=== PATIENT | male | born 1935 | race Caucasian/White ===

== ENCOUNTER 2019-07-04 09:09 | Emergency (ER) | payer MEDICARE ==
--- NOTE | 2019-07-04 09:56 | RAD ---
Exam: Chest one view HISTORY:Chest pain Comparison: 10/27/2015 FINDINGS: Cardiac silhouette:Upper normal cardiac silhouette. Stable sternotomy wires. Aorta: Atherosclerosis of the aortic knob Pulmonary vessels: Normal Costophrenic angles: Clear LUNGS: No masses or consolidation. Diffuse reticulonodular opacities. Stable calcified granulomas. Pneumothorax: None Osseous abnormalities: None IMPRESSION: No acute cardiopulmonary process. Atherosclerosis of the aortic knob.
--- NOTE | 2019-07-04 10:17 | CT ---
Exam: CT cervical spine without contrast HISTORY: Trauma. Pain. COMPARISON: None FINDINGS: No craniocervical dissociation. Appropriate alignment of the lateral masses of C1 and C2. Intact odon toid process Appropriate alignment of the facets. Straightening of normal cervical lordosis may be due to patient position, muscle spasm or cervical co llar. Current study is not tailored to assess for ligamentous injury. Soft tissue neck structures: No mass, lymphadenopathy or hematoma. No prevertebral soft tissue swelli ng. Upper mediastinum and lung apices: Unremarkable Central spinal canal: Neural foramina and central spinal canal are patent. Evaluation is limited by elias sales. There is sclerosis at the C6-C7 disc space. Endplate changes are presumed due to long-standing degenerative change. Vertebral bodies: There does appear to be loss of vertebral body height along the superior aspect of C7. However, sclerosis suggesting a chronic process. Acute fracture is not appreciated. There is mild bone demineralization. Sellar/suprasellar mass is noted. Incomplete evaluation. Refer to prior imaging for further detail IMPRESSION: 1. Remote injury/degenerative change involving the superior endplate of C7. 2. No acute fracture. 3. Mild bony demineralization.
--- NOTE | 2019-07-04 10:18 | CT ---
Head CT without contrast 07/04/2019: COMPARISON: 10/27/2015 HISTORY: Fall, trauma TECHNIQUE: Axial CT imaging at 5 mm intervals from vertex through skull base without contrast FINDINGS: Focal area of scalp swelling and subcutaneous hematoma noted superior and lateral to the le ft orbit. The visualized paranasal sinuses/mastoid air cells appear well aerated. No displaced calvarial fracture is noted. There is a mass in the sellar/suprasellar region measuring 3.0 x 2.4 cm, grossly unchanged when godwin red to the prior exam. This mass appears stable when compared to additional prior imaging, including brain MRI performed 08/31/2015. There is new hypodensity with encephalomalacia involving the inferior lateral left frontal lobe exten ding to the axial level of the frontal horn of left lateral ventricle suggesting a new but chronic infarction. No intracranial hemorrhage seen. IMPRESSION: Numerous chronic/incidental findings. Focal area of scalp swelling/subcutaneous hematoma in the left supraorbital region with no associated intracranial hemorrhage or fracture.
[2019-07-04 10:20] LABS: #Eosinphils 0.2 thou/uL (0.0-0.7); #Lymphocytes 2.1 thou/uL (1.20-3.40); #Monocytes 1.1 thou/uL (0.11-0.59); %Basophils 0.1 % (0.0-1.0); %Eosinophils 1.7 % (0.0-10.0); %Lymphocytes 14.3 % (21.0-51.0); %Monocytes 7.5 % (0.0-10.0); %Neutrophils 76.5 % (42.0-75.0); Hemoglobin 13.3 g/dL (14.0-18.0); Mean Corpuscular HGB CONC 34.2 g/dL (32.0-36.0); Mean Corpuscular Hemoglobin 31.7 pg (27.0-31.0); Mean Corpuscular Volume 92.6 fL (78.0-98.0); Mean Platelet Volume 9.4 fL (7.4-10.4); Platelet Count 254 thou/uL (130-400); RBC Distribution Width 11.9 % (11.5-14.5); White Blood Cell (WBC) Count 14.4 thou/uL (4.8-10.8)
[2019-07-04 10:42] LABS: ALT (SGPT) Less than 7 U/L (8-55); AST (SGOT) 14 U/L (5-34); Albumin 3.7 g/dL (3.4-4.8); Alkaline Phosphatase 114 U/L (40-110); Anion Gap 14 mmol/L (10-20); BUN (Urea Nitrogen) 11 mg/dL (8.4-25.7); Calc. Creatinine Clearance 0 mL/min (70-130); Calcium 8.7 mg/dL (7.8-10.44); Carbon Dioxide 29 mmol/L (23-31); Chloride 100 mmol/L (98-107); Estimated GFR-MDRD 50; Globulin 2.6 g/dL (2.4-3.5); Glucose 200 mg/dL (83-110); Lipase 9 U/L (8-78); Potassium 4.7 mmol/L (3.5-5.1); Protein, Total 6.3 g/dL (5.8-8.1); Sodium 138 mmol/L (136-145)
[2019-07-04 10:57] LABS: Bilirubin Negative (Negative); Blood, Urine Negative (Negative); Clarity Clear (Clear); Glucose, Urine (Dipstick) Normal (Negative); Leukocyte Negative Leu/uL (Negative); Nitrite Negative (Negative); Protein, Urine (Dipstick) Negative (Neg-Trace); Urobilinogen Normal mg/dL (Less than 2)
[2019-07-04] MEDS ORDERED: Acetaminophen 325 MG TAB ONE (15:01)
== END 2019-07-04 15:18 | disposition home or self-care (01) ==
LOC: ERS 09:09
DX: S16.1XXA Strain of muscle, fascia and tendon at neck level, initial encounter (principal); S00.83XA Contusion of other part of head, initial encounter; G30.9 Alzheimer's disease, unspecified; I25.10 Atherosclerotic heart disease of native coronary artery without angina pectoris; I10 Essential (primary) hypertension; E11.9 Type 2 diabetes mellitus without complications; Z86.73 Personal history of transient ischemic attack (TIA), and cerebral infarction without residual deficits; Z79.899 Other long term (current) drug therapy; W18.30XA Fall on same level, unspecified, initial encounter
CPT/HCPCS: 36415; 70450; 71045; 72125; 80053; 81003; 83690; 83880; 84484; 85025; 93005; 96360; 96361

== ENCOUNTER 2019-07-09 09:12 | Inpatient (IN) | payer MEDICARE ==
[2019-07-09 09:43] LABS: #Eosinphils 0.1 thou/uL (0.0-0.7); #Lymphocytes 1.8 thou/uL (1.20-3.40); #Monocytes 0.9 thou/uL (0.11-0.59); #Neutrophils 8.8 thou/uL (1.40-6.50); %Basophils 0.2 % (0.0-1.0); %Eosinophils 0.7 % (0.0-10.0); %Lymphocytes 15.5 % (21.0-51.0); %Monocytes 7.7 % (0.0-10.0); %Neutrophils 75.9 % (42.0-75.0); Hemoglobin 13.6 g/dL (14.0-18.0); Mean Corpuscular HGB CONC 33.2 g/dL (32.0-36.0); Mean Corpuscular Hemoglobin 30.3 pg (27.0-31.0); Mean Corpuscular Volume 91.4 fL (78.0-98.0); Mean Platelet Volume 8.8 fL (7.4-10.4); Platelet Count 301 thou/uL (130-400); Red Blood Cell (RBC) Count 4.48 mill/uL (4.70-6.10); White Blood Cell (WBC) Count 11.6 thou/uL (4.8-10.8)
--- NOTE | 2019-07-09 10:01 | CT ---
CT BRAIN WITHOUT CONTRAST: Date: 07/09/19 HISTORY: Syncope. FINDINGS: Comparison made with exam of 07/04/19. 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 Ventricular s ize is stable and the basilar cisterns are patent. No evidence of acute infarct, hemorrhage, midline shift, or abnormal extra-axial fluid collections are seen. The bony calvarium is intact. The soft tis mare hematoma superolateral to the left orbit is again seen. The sellar/suprasellar mass is unchanged since MRI of 08/31/15. IMPRESSION: Stable exam. No acute intracranial process. POS: [facility]
[2019-07-09 10:09] LABS: ALT (SGPT) Less than 7 U/L (8-55); AST (SGOT) 12 U/L (5-34); Albumin 3.9 g/dL (3.4-4.8); Alkaline Phosphatase 110 U/L (40-110); Anion Gap 14 mmol/L (10-20); BUN (Urea Nitrogen) 19 mg/dL (8.4-25.7); Bilirubin, Total 1.4 mg/dL (0.2-1.2); Calc. Creatinine Clearance 0 mL/min (70-130); Calcium 8.9 mg/dL (7.8-10.44); Carbon Dioxide 30 mmol/L (23-31); Chloride 97 mmol/L (98-107); Estimated GFR-MDRD 44; Globulin 2.6 g/dL (2.4-3.5); Glucose 172 mg/dL (83-110); Potassium 3.3 mmol/L (3.5-5.1); Protein, Total 6.5 g/dL (5.8-8.1); Sodium 138 mmol/L (136-145)
[2019-07-09 13:08] VITALS: BMI 23.8
[2019-07-09 13:15] LABS: Troponin I Less than 0.010 ng/mL (< 0.028)
[2019-07-09] MEDS ORDERED: Bisacodyl 5 MG TAB PO PRN (19:45)
--- NOTE | 2019-07-09 20:21 | PDOC.HHP ---
Hospitalist HPI - History of Present Illness syncope History of Present Illness: This is an 84 year old male with dementia, CAD, who presented to ER from [facility] for possible syncope. Today he fell after feeling lightheaded. Staff caught him before he hit the floor. He was laid down by staff and started vomiting and having some diarrhea and incontinence. He had a recent fall a few days ago and went to the ER and was discharged the same day. During that time he hit his head and had some eye bruising. In the EMS, he had HR in the 50's. Patient denied head pain but had dizziness upon sitting up in the ER. Patient has dementia and is unreliable historian. He does not know why he is here. He knows he is on the hospital and insists he is going home tomorrow, does not know the year. Patient denies chest pain, abdominal pain, numbness in extremities, nausea, vomiting, constipation, diarrhea ED Course: EKG showed new LBBB, troponin was normal. Patient also found to have a creatinine of 1.53 and was given 1L normal saline. Ct head was normal. He Hospitalist ROS - Review of Systems Eyes: denies: pain, vision change, conjunctivae inflammation, other ENT: denies: ear discharge, nose pain Respiratory: denies: dry, shortness of breath, pleuritic pain Cardiovascular: denies: chest pain, palpitations Gastrointestinal: denies: nausea, vomiting, abdominal pain, diarrhea Genitourinary: denies: dysuria, frequency Neurological: denies: weakness, numbness, incoordination Hospitalist History - Past Medical History Cardiac: reports: AFIB, CAD, HTN Renal/: reports: Benign prostatic enlarg. Endocrine: reports: Diabetes Other Medical History: Dementia - Past Surgical History Past Surgical History: reports: CABG - Family History Family History: reports: diabetes mellitus - Social History Smoking Status: Never smoker Alcohol: reports: None Living Situation: [facility] Activity level: independent ambulation - Exam General Appearance: NAD, awake alert General - other findings: Patient with mild swelling on left scalp . Eye: PERRL, anicteric sclera Eye - other findings: Left eyelid appears bruised ENT: normocephalic atraumatic, no oropharyngeal lesions, dry oral mucosa Neck: supple, symmetric, no JVD Heart: RRR, no murmur, no gallops, no rubs Respiratory: CTAB, no wheezes, no rales, no ronchi Gastrointestinal: soft, non-tender, non-distended, normal bowel sounds Extremities: no cyanosis, no clubbing, no edema Skin: normal turgor, no lesions Neurological: cranial nerve grossly intact, normal sensation to touch, no focal deficits, facial droop Neurological - other findings: oriented to place Musculoskeletal: normal tone, normal strength, no muscle wasting Psychiatric: oriented to place Psychiatric - other findings: confused Hospitalist Results - Labs Result Diagrams: 07/09/19 09:34 07/09/19 09:34 Lab results: WBC 11.6 thou/uL (4.8-10.8) H 07/09/19 09:34 Hgb 13.6 g/dL (14.0-18.0) L 07/09/19 09:34 Hct 40.9 % (42.0-52.0) L 07/09/19 09:34 MCV 91.4 fL (78.0-98.0) 07/09/19 09:34 Plt Count 301 thou/uL (130-400) 07/09/19 09:34 Neutrophils % 75.9 % (42.0-75.0) H 07/09/19 09:34 Sodium 138 mmol/L (136-145) 07/09/19 09:34 Potassium 3.3 mmol/L (3.5-5.1) L 07/09/19 09:34 Chloride 97 mmol/L (98-107) L 07/09/19 09:34 Carbon Dioxide 30 mmol/L (23-31) 07/09/19 09:34 BUN 19 mg/dL (8.4-25.7) 07/09/19 09:34 Creatinine 1.53 mg/dL (0.7-1.3) H 07/09/19 09:34 Glucose 172 mg/dL (83-110) H 07/09/19 09:34 Calcium 8.9 mg/dL (7.8-10.44) 07/09/19 09:34 Total Bilirubin 1.4 mg/dL (0.2-1.2) H 07/09/19 09:34 AST 12 U/L (5-34) 07/09/19 09:34 ALT Less than 7 U/L (8-55) L 07/09/19 09:34 Alkaline Phosphatase 110 U/L (40-110) 07/09/19 09:34 Troponin I 0.020 ng/mL (< 0.028) 07/09/19 15:41 Serum Total Protein 6.5 g/dL (5.8-8.1) 07/09/19 09:34 Albumin 3.9 g/dL (3.4-4.8) 07/09/19 09:34 Hospitalist H&P A/P - Plan Plan: CT brain: no acute disease This is an 84 year old male who presented to the ER with syncope. Has had recurrent falls. Found to have new LBBB, brought in for evaluation Syncope - possibly orthostatic versus vasovagal - check orthostatics, monitor on telemetry, troponin normal. Hold lisinopril and lasix for now - EKG shows LBBB, this is not new. Will check ECHO, monitor heart rate on metoprolol MONIE - creatinine was 1.53. Will continue IV fluids Leukocytosis - WBC elevated, check chest Xray and UA Hypokalemia - potassium 3.3, replace with 40 meq of potassium LBBB -noted on EKG in 2015. Obtain ECHO. No chest pain currently Recurrent Falls - PTOT. Elevated bilirubin - bilirubin 1.4, will recheck tomorrow. LFTS normal Hypertension - resume metoprolol, hold imdur and finasteride Diabetes type II - diabetic diet, insulin sliding scale GERD - protonix Parkinsons - continue carbidopa/levodopa tid Hyperlipidemia - 40 mg po qhs Code status: DNR DVT prophylaxis: hold off for now, PTOT
[2019-07-09] MEDS ORDERED: Nystatin Cream 30 GM TUBE TOP PRN (20:23)
[2019-07-09] MEDS ORDERED: Dextrose 50% Abboject 50 ML SYRINGE SLOW IVP PRN (20:34)
[2019-07-09] MEDS ORDERED: HumaLOG 300 UNITS/3 ML VIAL SC PRN (20:34)
[2019-07-09] MEDS ORDERED: Dextrose 5% in Water 1,000 ML IV PRN (20:34)
[2019-07-09] MEDS ORDERED: Potassium Chloride 20 MEQ TAB PO SCH (20:45)
[2019-07-09] MEDS: Metoprolol Tartrate 50 MG TAB PO SCH (21:31)
[2019-07-09] MEDS: Sodium Chloride 0.9% 1,000 ML IV SCH (21:31)
[2019-07-09] MEDS: Finasteride 5 MG TAB PO SCH (21:31)
[2019-07-09] MEDS: Apixaban 5 MG TAB PO SCH (21:31)
[2019-07-09] MEDS: Atorvastatin Calcium 40 MG TAB PO SCH (21:31)
[2019-07-09] MEDS: Donepezil HCl 10 MG TAB PO SCH (21:56)
[2019-07-09] MEDS: Carbidopa/Levodopa 25-100 mg Tablet PO SCH (21:57)
[2019-07-10 06:33] LABS: #Eosinphils 0.1 thou/uL (0.0-0.7); #Lymphocytes 2.3 thou/uL (1.20-3.40); #Neutrophils 8.4 thou/uL (1.40-6.50); %Basophils 0.1 % (0.0-1.0); %Eosinophils 1.2 % (0.0-10.0); %Lymphocytes 19.6 % (21.0-51.0); %Monocytes 8.7 % (0.0-10.0); %Neutrophils 70.3 % (42.0-75.0); Mean Corpuscular HGB CONC 33.7 g/dL (32.0-36.0); Mean Corpuscular Hemoglobin 30.9 pg (27.0-31.0); Mean Corpuscular Volume 91.7 fL (78.0-98.0); Mean Platelet Volume 9.2 fL (7.4-10.4); Platelet Count 261 thou/uL (130-400); RBC Distribution Width 11.9 % (11.5-14.5); Red Blood Cell (RBC) Count 4.22 mill/uL (4.70-6.10); White Blood Cell (WBC) Count 11.9 thou/uL (4.8-10.8)
[2019-07-10 06:49] LABS: Anion Gap 11 mmol/L (10-20); BUN (Urea Nitrogen) 18 mg/dL (8.4-25.7); Calc. Creatinine Clearance 55 mL/min (70-130); Calcium 8.5 mg/dL (7.8-10.44); Carbon Dioxide 31 mmol/L (23-31); Chloride 100 mmol/L (98-107); Estimated GFR-MDRD 60; Glucose 113 mg/dL (83-110); Potassium 3.3 mmol/L (3.5-5.1); Sodium 139 mmol/L (136-145)
[2019-07-10 06:52] LABS: ALT (SGPT) Less than 7 U/L (8-55); AST (SGOT) 12 U/L (5-34); Albumin 3.6 g/dL (3.4-4.8); Alkaline Phosphatase 99 U/L (40-110); Bilirubin, Direct 0.5 mg/dL (0.1-0.3); Bilirubin, Total 1.3 mg/dL (0.2-1.2)
[2019-07-10 08:48] LABS: Bacteria/HPF None Seen HPF (None Seen); Bilirubin Negative (Negative); Blood, Urine Negative (Negative); Clarity Clear (Clear); Glucose, Urine (Dipstick) Normal (Negative); Leukocyte Negative Leu/uL (Negative); Nitrite Negative (Negative); Protein, Urine (Dipstick) Negative (Neg-Trace); RBC/HPF 0-3 HPF (0-3); Squamous Epithelial None Seen HPF (0-3); Urobilinogen 3 mg/dL (Less than 2); WBC/HPF 0-3 HPF (0-3)
[2019-07-10] MEDS: Carbidopa/Levodopa 25-100 mg Tablet PO SCH ×3 (11:04→20:20)
[2019-07-10] MEDS: Apixaban 5 MG TAB PO SCH ×2 (11:04→20:20)
[2019-07-10] MEDS: Metoprolol Tartrate 50 MG TAB PO SCH ×2 (11:05→20:19)
[2019-07-10] MEDS: Sodium Chloride 0.9% 1,000 ML IV SCH (16:19)
[2019-07-10] MEDS ORDERED: Potassium Chloride 20 MEQ TAB PO SCH (16:30)
[2019-07-10] MEDS: Finasteride 5 MG TAB PO SCH (20:19)
[2019-07-10] MEDS: Donepezil HCl 10 MG TAB PO SCH (20:19)
[2019-07-10] MEDS: Atorvastatin Calcium 40 MG TAB PO SCH (20:20)
--- NOTE | 2019-07-10 20:44 | PDOC.HOSPP ---
- Subjective Encounter Date: 07/10/19 Encounter Time: 20:42 Subjective: Patient is doing well. He denies any complaints. He ambulated with PT and was found to be independent with walker. Denies chest pain, numbness in extremities - Objective Vital Signs & Weight: Vital Signs (12 hours) Temp Pulse Pulse Pulse Resp BP BP 07/10/19 15:52 97.8 F 65 14 07/10/19 13:50 65 67 157/72 H 170/79 H 07/10/19 11:30 97.8 F 68 15 07/10/19 10:26 88 18 07/10/19 10:25 97.5 F L 88 20 BP Pulse Ox 07/10/19 15:52 158/74 H 96 07/10/19 13:50 07/10/19 11:30 170/74 H 98 07/10/19 10:26 164/88 H 07/10/19 10:25 166/88 H 95 Weight Admit Weight 180 lb 3 oz Weight 180 lb 3 oz I&O: 07/09/19 07/10/19 07/11/19 06:59 06:59 06:59 Intake Total 650 1580 Output Total 750 1320 Balance -100 260 Result Diagrams: 07/10/19 05:50 07/10/19 05:50 Additional Labs: Accuchecks 07/10/19 07/10/19 20:05 05:08 POC Glucose 125 H 109 Hospitalist ROS - Review of Systems Constitutional: denies: fever, chills - Medication Medications: Active Medications Generic Name Dose Route Start Last Admin Trade Name Freq PRN Reason Stop Dose Admin Apixaban 5 mg 07/09/19 21:00 07/10/19 20:20 Eliquis PO 5 mg BID CONOR Administration Atorvastatin Calcium 40 mg 07/09/19 21:00 07/10/19 20:20 Lipitor PO 40 mg HS CONOR Administration Carbidopa/Levodopa 1 tab 07/09/19 21:00 07/10/19 20:20 Sinemet 25-100 PO 1 tab TID CONOR Administration Donepezil HCl 10 mg 07/09/19 21:00 07/10/19 20:19 Aricept PO 10 mg HS CONOR Administration Finasteride 5 mg 07/09/19 21:00 07/10/19 20:19 Proscar PO 5 mg HS CONOR Administration Sodium Chloride 1,000 mls @ 75 mls/hr 07/09/19 20:30 07/10/19 16:19 Normal Saline 0.9% IV 1,000 mls .[id number] CONOR Administration Metoprolol Tartrate 50 mg 07/09/19 21:00 07/10/19 20:19 Lopressor PO 50 mg BID CONOR Administration Pantoprazole Sodium 40 mg 07/10/19 09:00 07/10/19 11:05 Protonix PO 40 mg DAILY CONOR Administration - Exam General Appearance: NAD, awake alert Eye: PERRL, anicteric sclera Eye - other findings: Bruising on left eye ENT: normocephalic atraumatic, no oropharyngeal lesions Neck: supple, symmetric, no JVD, no thyromegaly Heart: RRR, no murmur, no gallops, no rubs Respiratory: CTAB, no wheezes, no rales Gastrointestinal: soft, non-tender, non-distended Extremities: no cyanosis, no clubbing, no edema Skin: normal turgor, no lesions, no rashes Neurological: cranial nerve grossly intact, normal sensation to touch, no focal deficits, no new deficit Musculoskeletal: normal tone, normal strength, no muscle wasting Psychiatric: normal affect, normal behavior, A&O x 3 Hosp A/P - Plan This is an 84 year old male who presented to the ER with syncope. Has had recurrent falls. Found to have new LBBB, brought in for evaluation Near Syncope - possibly orthostatic versus vasovagal LBBB Recurrent Falls - check orthostatics - no events on tele so far - troponin negative x 3. ECHO done and pending. Continue monitor on telemetry, troponin normal. Hold lisinopril and lasix for now - EKG shows LBBB, this is not new. Will check ECHO, monitor heart rate on metoprolol - PT saw patient and thought independent with walker and okay for detention Hypokalemia - potassium 3.3, replace with 40 meq of potassium. Recheck BMP in am Hypertension - BP increasing to 170's, will resume imdur - continue metoprolol - hold lisinopril and lasix due to MONIE on admission MONIE - resolved - d/c fluids Leukocytosis - WBC elevated, UA negative. Check chest x ray Hypokalemia - potassium 3.3, replace with 40 meq of potassium Elevated bilirubin - bilirubin 1.3, stable - no LFt elevation. Possibly Gilbert's? No abdominal pain or jaundice Diabetes type II - diabetic diet, insulin sliding scale GERD - protonix Parkinsons - continue carbidopa/levodopa tid Hyperlipidemia - 40 mg po qhs DVT prophylaxis: ambulation Code status: DNR Disposition: change to inpatient. Possibly d/c tomorrow if BP stable with resumption of meds and no falls
[2019-07-10] MEDS ORDERED: Amlodipine 5 MG TAB PO SCH (20:49)
[2019-07-10] MEDS: Isosorbide Mononitrate 20 MG TAB PO SCH (21:25)
[2019-07-11 04:50] LABS: Hemoglobin 12.8 g/dL (14.0-18.0); Mean Corpuscular Hemoglobin 32.2 pg (27.0-31.0); Mean Corpuscular Volume 91.7 fL (78.0-98.0); Mean Platelet Volume 8.9 fL (7.4-10.4); Platelet Count 252 thou/uL (130-400); RBC Distribution Width 11.9 % (11.5-14.5); Red Blood Cell (RBC) Count 3.98 mill/uL (4.70-6.10)
[2019-07-11 04:56] LABS: Anion Gap 12 mmol/L (10-20); BUN (Urea Nitrogen) 17 mg/dL (8.4-25.7); Calc. Creatinine Clearance 66 mL/min (70-130); Calcium 8.6 mg/dL (7.8-10.44); Carbon Dioxide 29 mmol/L (23-31); Chloride 104 mmol/L (98-107); Estimated GFR-MDRD 73; Glucose 121 mg/dL (83-110); Potassium 3.5 mmol/L (3.5-5.1); Sodium 141 mmol/L (136-145)
[2019-07-11] MEDS: Apixaban 5 MG TAB PO SCH ×2 (08:37→19:34)
[2019-07-11] MEDS: Isosorbide Mononitrate 20 MG TAB PO SCH ×2 (08:37→19:33)
[2019-07-11] MEDS: Carbidopa/Levodopa 25-100 mg Tablet PO SCH ×3 (08:37→19:34)
[2019-07-11] MEDS: Metoprolol Tartrate 50 MG TAB PO SCH ×2 (08:37→19:33)
--- NOTE | 2019-07-11 09:46 | RAD ---
FRONTAL VIEW CHEST: COMPARISON: 07/04/2019. INDICATION: Leukocytosis. FINDINGS: Postoperative findings of the chest are similar in appearance. Redemonstration of granulom atous calcification. Mild linear density at the left lung base favors atelectasis. Otherwise no lobar consolidation, or significant effusion. Chest is otherwise similar. IMPRESSION: Mild left basilar atelectasis. Transcribed Date/Time: 07/11/2019 9:59 AM
[2019-07-11] MEDS ORDERED: Lisinopril 5 MG TAB PO SCH (13:30)
--- NOTE | 2019-07-11 18:09 | PDOC.HOSPP ---
- Subjective Encounter Date: 07/11/19 Encounter Time: 18:08 Subjective: Patient has no complaints. He states he walked around the hallway without difficulty. He has no headache or eye pain. Lisinopril restarted at low dose 2.5 mg. Orthostatics positive this morning but repeat orthostatics negative. - Objective Vital Signs & Weight: Vital Signs (12 hours) Temp Pulse Pulse Pulse Resp BP BP 07/11/19 15:10 98.6 F 64 18 07/11/19 13:52 90 155/85 H 07/11/19 11:52 97.2 F L 90 18 07/11/19 11:24 113 H 87 155/85 H 07/11/19 09:02 78 82 137/74 07/11/19 07:58 98.3 F 80 18 07/11/19 07:40 BP BP BP BP BP Pulse Ox 07/11/19 15:10 145/88 H 148/86 H 138/76 97 07/11/19 13:52 07/11/19 11:52 155/85 H 97 07/11/19 11:24 123/73 07/11/19 09:02 147/78 H 07/11/19 07:58 133/82 98 07/11/19 07:40 97 Weight Admit Weight 180 lb Weight 180 lb 3 oz I&O: 07/10/19 07/11/19 07/12/19 06:59 06:59 06:59 Intake Total 650 1680 Output Total 750 1720 Balance -100 -40 Result Diagrams: 07/11/19 04:21 07/11/19 04:21 Additional Labs: Accuchecks 07/11/19 07/11/19 07/10/19 16:51 10:36 20:05 POC Glucose 165 H 135 H 125 H Hospitalist ROS - Review of Systems Constitutional: denies: fever, chills - Medication Medications: Active Medications Generic Name Dose Route Start Last Admin Trade Name Freq PRN Reason Stop Dose Admin Apixaban 5 mg 07/09/19 21:00 07/11/19 08:37 Eliquis PO 5 mg BID CONOR Administration Atorvastatin Calcium 40 mg 07/09/19 21:00 07/10/19 20:20 Lipitor PO 40 mg HS CONOR Administration Carbidopa/Levodopa 1 tab 07/09/19 21:00 07/11/19 15:10 Sinemet 25-100 PO 1 tab TID CONOR Administration Donepezil HCl 10 mg 07/09/19 21:00 07/10/19 20:19 Aricept PO 10 mg HS CONOR Administration Finasteride 5 mg 07/09/19 21:00 07/10/19 20:19 Proscar PO 5 mg HS CONOR Administration Insulin Human Lispro 0 units 07/09/19 20:34 07/11/19 17:23 Humalog SC 2 unit .MILD SLIDING SCALE PRN Administration Mild Correctional Scale Isosorbide Mononitrate 20 mg 07/10/19 21:00 07/11/19 08:37 Ismo PO 20 mg BID CONOR Administration Metoprolol Tartrate 50 mg 07/09/19 21:00 07/11/19 08:37 Lopressor PO 50 mg BID CONOR Administration Pantoprazole Sodium 40 mg 07/10/19 09:00 07/11/19 08:37 Protonix PO 40 mg DAILY CONOR Administration - Exam General Appearance: NAD, awake alert General - other findings: head scalp Eye: PERRL, anicteric sclera ENT: normocephalic atraumatic, no oropharyngeal lesions, dry oral mucosa Neck: supple, symmetric, no JVD, no thyromegaly Heart: RRR, no murmur, no gallops, no rubs Respiratory: CTAB, no wheezes, no rales, no ronchi, no tachypnea Gastrointestinal: soft, non-tender, non-distended, no palpable masses Extremities: no cyanosis, no clubbing, no edema Skin: normal turgor, no lesions, no rashes Neurological: cranial nerve grossly intact, normal sensation to touch, no focal deficits, no new deficit Musculoskeletal: normal tone, normal strength, no muscle wasting Psychiatric: normal affect, normal behavior, A&O x 3, oriented to person Hosp A/P - Plan ECHO: EF 40-45%, mild MR, mild TR Chest X ray: mild left basilar atelectasis This is an 84 year old male who presented to the ER with syncope. Has had recurrent falls. Found to have new LBBB, brought in for evaluation Orthostatic syncope LBBB Recurrent Falls Hypertension - orthostatics positive. On finasteride, imdur, metoprolol. Lisinopril resumed at low dose 5 mg. Repeat orthostatics negative. Patient on 6 antihypertensives as outpatient. IF BP remains stable, will likely d/c on current regimen - no events on tele so far - troponin negative x 3. ECHO shows EF 40-45%. Hypokalemia - resolved MONIE - resolved - d/c fluids Leukocytosis - WBC elevated, UA negative. Chest Xray shows atelectasis Elevated bilirubin - bilirubin 1.3, stable - no LFt elevation. Possibly Gilbert's? No abdominal pain or jaundice Diabetes type II - diabetic diet, insulin sliding scale GERD - protonix Parkinsons - continue carbidopa/levodopa tid Hyperlipidemia - 40 mg po qhs DVT prophylaxis: ambulation Code status: DNR Disposition: monitor BP overnight with addition of lisinopril. Likely d/c tomorrow if stable
[2019-07-11] MEDS: Donepezil HCl 10 MG TAB PO SCH (19:34)
[2019-07-11] MEDS: Finasteride 5 MG TAB PO SCH (19:34)
[2019-07-11] MEDS: Atorvastatin Calcium 40 MG TAB PO SCH (19:34)
[2019-07-12] MEDS ORDERED: Lisinopril 5 MG TAB PO SCH ×2 (09:00→13:11)
[2019-07-12] MEDS: Carbidopa/Levodopa 25-100 mg Tablet PO SCH ×2 (10:22→14:48)
[2019-07-12] MEDS: Isosorbide Mononitrate 20 MG TAB PO SCH (10:22)
[2019-07-12] MEDS: Apixaban 5 MG TAB PO SCH (10:22)
[2019-07-12] MEDS: Metoprolol Tartrate 50 MG TAB PO SCH (10:23)
[2019-07-12 11:57] VITALS: TEMP 97.7
[2019-07-12 13:28] VITALS: BP 177/92
--- NOTE | 2019-07-13 04:04 | PQF ---
JOSE PARKINSON, [facility] [id number] CLINICAL DOCUMENTATION CLARIFICATION FORM: POST DISCHARGE Addendum to original discharge summary date: ____ Late entry note date: __ DATE: 07/13/19 ATTN: Dr. Phoenix, [facility] Please exercise your independent, professional judgment in responding to the clarification form. Clinical indicators are provided on the bottom of this form for your review Can you please further specify the etiology of syncope? Please check appropriate box(s): Syncope Due to: [ X ] Orthostatic hypotension [ ] LBBB [ ] MONIE [ ] Vasovagal syncope [ ] Drug Induced hypotension [ ] Other diagnosis please specify [ ] Unable to determine In addition, please specify: Present on Admission (POA): [ ] Yes [ ] No [ ] Unable to determine For continuity of documentation, please document condition throughout progress notes and discharge summary. Thank You. CLINICAL INDICATORS - SIGNS / SYMPTOMS / LABS H and P pg.1- In EMS he had HR in the 50's H and P pg.1- EKG showed new LBBB, troponin was normal H and P pg.1- Patient also found to have Creatinine of 1.53 and was given normal saline H and P pg.3- Syncope possibly orthostatic vs vasovagal Hospitalist PN 07/11 pg.5-Orthostatic positive. Patient on 6 antihypertensives as outpatient RISK FACTORS Dementia- H and P pg.1 Hypertension- H and P pg.4 Diabetes type 2- H and P pg.4 Parkinson- H and P pg.4 Hyperlipidemia- H and P pg.4 84 years old male - ED Notes 07/10 AFib - ED Notes 07/10 LBBB - ED Notes 07/10 MONIE - PN 07/10 Hypokalemia - PN 07/10 TREATMENTS IV Fluids- MAR 07/10 BP Monitoring- Vital signs CT of Brain - Collected 10/27 EKG - HP 07/10 Electrolyte replacement - HP 07/10 Hold for Imdur and Finasteride - HP 07/10 (This form is maintained as a part of the permanent medical record) 2014 [employer]. All Rights Reserved Justyn [email or web address] [not provided] MTDD
--- NOTE | 2019-07-13 12:34 | DIS ---
DATE OF ADMISSION: 07/10/2019 DATE OF DISCHARGE: 07/12/2019 DISCHARGE DIAGNOSES: Recurrent fall secondary to orthostatic hypotension, orthostatic syncope, left bundle branch block, hypokalemia, acute kidney injury, leukocytosis, and elevated bilirubin. SECONDARY DISCHARGE DIAGNOSES: Diabetes type 2, gastroesophageal reflux disease , Parkinson's, and hyperlipidemia. CONSULTATIONS: None. PROCEDURES: None. BRIEF HISTORY OF PRESENT ILLNESS: This is an 84-year-old male with history of dementia, CAD, atrial fibrillation, hypertension, and diabetes, who presented to the ER from the half-way for possible syncope. The patient reported feeling lightheaded and the staff caught him before he hit the floor. He had some diarrhea and incontinence and started vomiting. A few days prior, the patient hit his head and had some bruising on his eye. The patient came to the ER for further evaluation. On evaluation in the ER, he was noted to have a left bundle branch block and a heart rate in the 50s. The patient was unable to give a detailed history due to his dementia. Syncope secondary to orthostatic versus vasovagal hypotension/LBBB: The patient 's orthostatics were checked on 07/11 and were noted to be positive with a blood pressure of 158/84 while sitting, decreasing to 119/75 while standing. The patient was hydrated with IV fluids in the emergency room. The patient's antihypertensives were held. His EKG had showed a left bundle branch block, but after chart review, this was noted to be old, and not new. The patient had three sets of troponin's , which were normal. The patient had an echocardiogram done on 07/10, which showed an EF of 40% to 45% with mild MR and TR, and no wall motion abnormalities. Due to the patient's blood pressure increasing, his lisinopril was resumed at 2.5 mg and eventually increased to 5 mg. Repeat orthostatics done on 07/11 were negative, and the patient denied any dizziness while standing. The patient's Lasix was discontinued on discharge, and he was continued on his finasteride, Imdur, and metoprolol. He was however given a prescription for Lasix to take as needed if he were to develop increasing chest congestion or peripheral edema. There were no suspicious events on telemetry. The patient was evaluated by Physical Therapy and they felt that he was independent with a walker. The patient also had a CT scan of his brain on admission which showed no acute disease and a chest x-ray which was unremarkable. Hypokalemia: The patient had a potassium of 3.3 on 07/09 which resulted 3.5 on the day of discharge. Acute kidney injury: The patient presented with a creatinine of 1.53 on 07/09 which improved to 0.98 on the day of discharge. Leukocytosis: The patient had a white count of 11.6 on 07/09 and on 07/11, it continued to be elevated at 11.0. The patient had a UA and chest x-ray which were negative for infection. The patient should have a repeat CBC as an outpatient with his PCP. Elevated bilirubin: The patient had a bilirubin of 1.3, however, no elevations in his LFTs. Consider outpatient followup. All other home medications were resumed. PERTINENT LABORATORY DATA: CBC 07/11: White blood cell count 11.0, hemoglobin 12.8, hematocrit 36.2, and platelets were normal. BMP 07/11: Unremarkable except for glucose of 121. LFTs 07/10: Normal. PERTINENT IMAGING: CT Brain 07/09: No acute disease. Chest x-ray on 07/11: Mild left basilar atelectasis. DISCHARGE CONDITION: The patient was felt to be stable with a walker. DISCHARGE PHYSICAL EXAMINATION: VITAL SIGNS: Temperature 97.7, heart rate 77, respiratory rate 18, and O2 saturation 96% on room air. GENERAL: The patient is alert and oriented to person and place. He was noted to have some bruising on his scalp and around his eye. His pupils were equal and reactive to light. HEART: Regular rate and rhythm with no murmurs, rubs, or gallops. RESPIRATORY: Clear to auscultation bilaterally. GI: Soft, nontender, nondistended with normal bowel sounds. EXTREMITIES: No clubbing or edema. SKIN: Bruising around the eye and on the left side of the forehead. NEUROLOGICAL: Cranial nerves are grossly intact with no focal deficits. MUSCULOSKELETAL: Normal tone, strength, no muscle wasting. ACTIVITY: The patient to ambulate with a walker. DIET RESTRICTION: Cardiac and diabetic diet. DISCHARGE MEDICATIONS: The patient's lisinopril was reduced from 40 mg to 5 mg p.o. daily. Lasix was discontinued. All other home medications were resumed. DISCHARGE INSTRUCTIONS: The patient should follow up with PCP in a week and consider restarting Lasix if needed. Job ID: [id number] COOPER
== END 2019-07-12 17:31 | disposition home or self-care (01) | DRG 312 ==
LOC: ERS 09:12 → 2NO 11:26 → OBSVTOIN 07-10 20:59
PROVIDERS: ADMIT Internal Medicine; ATTEND Internal Medicine
DX: I95.1 Orthostatic hypotension (principal); N17.9 Acute kidney failure, unspecified; J98.11 Atelectasis; I44.7 Left bundle-branch block, unspecified; Z66 Do not resuscitate; I25.10 Atherosclerotic heart disease of native coronary artery without angina pectoris; D72.829 Elevated white blood cell count, unspecified; I10 Essential (primary) hypertension; E11.9 Type 2 diabetes mellitus without complications; K21.9 Gastro-esophageal reflux disease without esophagitis; G20 Parkinson's disease; R29.6 Repeated falls; F02.80 Dementia in other diseases classified elsewhere, unspecified severity, without behavioral disturbance, psychotic disturbance, mood disturbance, and anxiety; E87.6 Hypokalemia; E78.5 Hyperlipidemia, unspecified; E80.6 Other disorders of bilirubin metabolism; Z95.1 Presence of aortocoronary bypass graft; Z79.01 Long term (current) use of anticoagulants; Z86.73 Personal history of transient ischemic attack (TIA), and cerebral infarction without residual deficits; Z79.84 Long term (current) use of oral hypoglycemic drugs; Z79.899 Other long term (current) drug therapy; I48.91 Unspecified atrial fibrillation; N40.0 Benign prostatic hyperplasia without lower urinary tract symptoms; I08.1 Rheumatic disorders of both mitral and tricuspid valves
CPT/HCPCS: 36415; 36416; 70450; 71045; 80048; 80053; 80076; 81001; 82274; 84484; 85025; 85027; 93005; 93306; 96360; 96361

== ENCOUNTER 2023-01-06 10:02 | Inpatient (IN) | payer MEDICARE, MEDICAID ==
[2023-01-06] MEDS ORDERED: VANCOMYCIN 1.75 GM/500 ML BAG 1.75 GM in Premix Bag 1 BAG IVPB SCH (10:45)
[2023-01-06] MEDS ORDERED: Cefepime 2 GM VIAL ONE (11:06)
[2023-01-06 11:12] LABS: #Lymphocytes 0.9 thou/uL (1.20-3.40); #Monocytes 0.6 thou/uL (0.11-0.59); #Neutrophils 10.2 thou/uL (1.40-6.50); %Eosinophils 0.1 % (0.0-10.0); %Lymphocytes 7.9 % (21.0-51.0); %Monocytes 5.3 % (0.0-10.0); %Neutrophils 86.7 % (42.0-75.0); Hemoglobin 12.3 g/dL (14.0-18.0); Mean Corpuscular HGB CONC 33.4 g/dL (32.0-36.0); Mean Corpuscular Volume 92.8 fl (78.0-98.0); Mean Platelet Volume 10.1 fL (7.4-10.4); Platelet Count 137 10x3/uL (130-400); RBC Distribution Width 12.9 % (11.5-14.5); Red Blood Cell (RBC) Count 3.98 mill/uL (4.70-6.10); White Blood Cell (WBC) Count 11.7 10x3/uL (4.8-10.8)
[2023-01-06 11:21] LABS: SARS-CoV-2 NAA Rapid Test DETECTED (NotDetected)
[2023-01-06 11:22] LABS: INR-International Normal Ratio 1.6; Prothrombin Time 19.4 sec (12.0-14.7)
[2023-01-06 11:23] LABS: PTT 37.5 sec (22.9-36.1)
[2023-01-06 11:33] LABS: ALT (SGPT) 9 U/L (8-55); AST (SGOT) 13 U/L (5-34); Alkaline Phosphatase 82 U/L (40-110); Anion Gap 13 mmol/L (10-20); BUN (Urea Nitrogen) 33 mg/dL (8.4-25.7); Bilirubin, Total 1.7 mg/dL (0.2-1.2); CK (CPK) 555 U/L (30-200); Calc. Creatinine Clearance 0 mL/min (70-130); Calcium 8.2 mg/dL (7.8-10.44); Carbon Dioxide 25 mmol/L (23-31); Chloride 108 mmol/L (98-107); Estimated GFR 56; Globulin 2.4 g/dL (2.4-3.5); Glucose 205 mg/dL (83-110); Lipase 11 U/L (8-78); Magnesium 1.3 mg/dL (1.6-2.6); Potassium 3.3 mmol/L (3.5-5.1); Protein, Total 5.4 g/dL (5.8-8.1); Sodium 143 mmol/L (136-145)
[2023-01-06 11:39] LABS: Bacteria/HPF 4+ HPF (None Seen); Bilirubin Negative (Negative); Blood, Urine 3+ (Negative); Clarity Turbid (Clear); Glucose, Urine (Dipstick) Normal (Negative); Ketone, Urine Negative (Negative); Leukocyte 500 Leu/uL (Negative); Nitrite Negative (Negative); Protein, Urine (Dipstick) 50 mg/dL (Neg-Trace); RBC/HPF 0-3 HPF (0-3); Specific Gravity, Urine 1.022 (1.002-1.036); Squamous Epithelial 0-3 HPF (0-3); WBC/HPF Greater than 50 HPF (0-3); pH, Urine 5.5 (5.0-9.0)
[2023-01-06 12:06] LABS: CKMB 2.6 ng/mL (0-6.6)
[2023-01-06] MEDS ORDERED: Aspirin Chewable 81 MG TAB ONE (13:02)
[2023-01-06] MEDS ORDERED: Magnesium 2 GM/50 ML BAG (IN WATER) ONE ×2 (13:02→13:17)
[2023-01-06] MEDS ORDERED: Ondansetron PF 4 MG/2 ML Vial IVP PRN (14:15)
[2023-01-06] MEDS ORDERED: Senokot S 8.6-50 MG TAB PO PRN (14:15)
[2023-01-06] MEDS ORDERED: Guaifenesin DM 100-10/5 ML UDCUP PO PRN (14:15)
[2023-01-06] MEDS ORDERED: Ondansetron ODT 4 MG TAB PO PRN (14:15)
[2023-01-06] MEDS ORDERED: Dextrose 5% in Water 1,000 ML IV PRN (14:19)
[2023-01-06] MEDS ORDERED: Dextrose 50% Abboject 50 ML SYRINGE SLOW IVP PRN (14:19)
[2023-01-06 14:50] LABS: Lactic Acid 1.6 mmol/L (0.5-2.2)
[2023-01-06] MEDS ORDERED: Dexamethasone 4 MG TAB PO SCH (15:00)
[2023-01-06 15:05] LABS: Critical Call Chem Troponin I RESULT DECREASING; Troponin I 0.392 ng/mL (< 0.028)
[2023-01-06] MEDS ORDERED: VANCOMYCIN IVPB PRN (15:19)
[2023-01-06] MEDS: Carbidopa/Levodopa 25-100 mg Tablet PO SCH ×2 (18:24→21:22)
[2023-01-06] MEDS: Sodium Chloride 0.9% 1,000 ML IV SCH (18:25)
[2023-01-06 19:37] VITALS: BMI 24.4
[2023-01-06] MEDS ORDERED: Vancomycin 1 GM in Premix Bag 1 BAG IVPB SCH (21:00)
[2023-01-06] MEDS ORDERED: Finasteride 5 MG TAB PO SCH (21:00)
[2023-01-06] MEDS: Acetaminophen 500 MG TAB PO PRN (21:20)
[2023-01-06] MEDS: Donepezil HCl 10 MG TAB PO SCH (21:21)
[2023-01-06] MEDS: Apixaban 5 MG TAB PO SCH (21:21)
[2023-01-06] MEDS: Mirtazapine 15 MG TAB PO SCH (21:22)
[2023-01-06] MEDS: Atorvastatin Calcium 40 MG TAB PO SCH (21:22)
[2023-01-06] MEDS: Famotidine 20 MG TAB PO SCH (21:22)
[2023-01-06] MEDS: Metoprolol Tartrate 50 MG TAB PO SCH (21:23)
[2023-01-06] MEDS: Cefepime 2 GM in Sodium Chloride 0.9% 100 ML IVPB SCH (22:56)
[2023-01-07 01:28] LABS: Critical Call Chem Troponin I RESULT DECREASING; Troponin I 0.319 ng/mL (< 0.028)
[2023-01-07] MEDS: HumaLOG 300 UNITS/3 ML VIAL SC PRN ×4 (06:05→21:37)
[2023-01-07] MEDS ORDERED: traMADol HCl 50 MG TAB PO PRN (08:22)
[2023-01-07] MEDS ORDERED: metFORMIN 500 MG TAB PO SCH (08:30)
[2023-01-07] MEDS: Dexamethasone 4 MG TAB PO SCH (09:06)
[2023-01-07] MEDS: Apixaban 5 MG TAB PO SCH ×2 (09:06→21:30)
[2023-01-07] MEDS: Famotidine 20 MG TAB PO SCH ×2 (09:06→21:31)
[2023-01-07] MEDS: Metoprolol Tartrate 50 MG TAB PO SCH ×2 (09:06→21:31)
[2023-01-07] MEDS: Lisinopril 20 MG TAB PO SCH (09:06)
[2023-01-07] MEDS: Isosorbide Mononitrate 20 MG TAB PO SCH (09:07)
[2023-01-07] MEDS: Carbidopa/Levodopa 25-100 mg Tablet PO SCH ×3 (09:07→21:30)
[2023-01-07] MEDS: Amlodipine 5 MG TAB PO SCH (09:07)
[2023-01-07 09:31] LABS: Anion Gap 14 mmol/L (10-20); BUN (Urea Nitrogen) 33 mg/dL (8.4-25.7); Calc. Creatinine Clearance 64 mL/min (70-130); Calcium 8.4 mg/dL (7.8-10.44); Carbon Dioxide 22 mmol/L (23-31); Chloride 111 mmol/L (98-107); Estimated GFR 77; Glucose 217 mg/dL (83-110); Potassium 3.5 mmol/L (3.5-5.1); Sodium 143 mmol/L (136-145)
[2023-01-07 09:34] LABS: #Lymphocytes 0.9 thou/uL (1.20-3.40); #Monocytes 0.3 thou/uL (0.11-0.59); #Neutrophils 8.3 thou/uL (1.40-6.50); %Basophils 0.1 % (0.0-1.0); %Lymphocytes 9.6 % (21.0-51.0); %Monocytes 3.1 % (0.0-10.0); %Neutrophils 87.2 % (42.0-75.0); Hemoglobin 12.3 g/dL (14.0-18.0); Mean Corpuscular HGB CONC 31.7 g/dL (32.0-36.0); Mean Corpuscular Hemoglobin 29.7 pg (27.0-31.0); Mean Corpuscular Volume 93.8 fl (78.0-98.0); Mean Platelet Volume 10.2 fL (7.4-10.4); Platelet Count 144 10x3/uL (130-400); RBC Distribution Width 12.7 % (11.5-14.5); Red Blood Cell (RBC) Count 4.13 mill/uL (4.70-6.10); White Blood Cell (WBC) Count 9.5 10x3/uL (4.8-10.8)
[2023-01-07] MEDS: metFORMIN 500 MG TAB PO SCH (09:57)
[2023-01-07] MEDS: Cefepime 2 GM in Sodium Chloride 0.9% 100 ML IVPB SCH ×2 (10:00→22:58)
[2023-01-07 11:43] LABS: Free T4 (Free Thyroxine) 0.82 ng/dL (0.70-1.48)
[2023-01-07] MEDS ORDERED: VANCOMYCIN 1.75 GM/500 ML BAG 1.75 GM in Premix Bag 1 BAG IVPB SCH (12:00)
[2023-01-07 13:02] LABS: Squamous Epithelial 0-3 HPF (0-3)
[2023-01-07 13:10] LABS: WBC/HPF 21-50 HPF (0-3)
[2023-01-07 13:11] LABS: Bacteria/HPF 1+ HPF (None Seen)
[2023-01-07] MEDS: Sodium Chloride 0.9% 1,000 ML IV SCH (14:16)
[2023-01-07] MEDS: Atorvastatin Calcium 40 MG TAB PO SCH (21:30)
[2023-01-07] MEDS: Donepezil HCl 10 MG TAB PO SCH (21:30)
[2023-01-07] MEDS: Mirtazapine 15 MG TAB PO SCH (21:31)
[2023-01-07] MEDS: Finasteride 5 MG TAB PO SCH (21:31)
[2023-01-08] MEDS ORDERED: Metoprolol Tartrate 25 MG TAB PO SCH ×2 (03:45→09:00)
[2023-01-08] MEDS ORDERED: QUEtiapine 25 MG TAB PO SCH (03:45)
[2023-01-08] MEDS ORDERED: Metoprolol Tartrate 50 MG TAB PO SCH (03:50)
[2023-01-08] MEDS: HumaLOG 300 UNITS/3 ML VIAL SC PRN ×4 (06:20→20:37)
[2023-01-08] MEDS: Amlodipine 5 MG TAB PO SCH (08:24)
[2023-01-08] MEDS: metFORMIN 500 MG TAB PO SCH ×2 (08:24→17:33)
[2023-01-08] MEDS: Lisinopril 20 MG TAB PO SCH (08:24)
[2023-01-08] MEDS: Apixaban 5 MG TAB PO SCH ×2 (08:24→20:36)
[2023-01-08] MEDS: Isosorbide Mononitrate 20 MG TAB PO SCH (08:24)
[2023-01-08] MEDS: Carbidopa/Levodopa 25-100 mg Tablet PO SCH ×3 (08:25→20:35)
[2023-01-08] MEDS: Famotidine 20 MG TAB PO SCH ×2 (08:25→20:36)
[2023-01-08] MEDS: Dexamethasone 4 MG TAB PO SCH (08:25)
[2023-01-08 08:36] LABS: #Monocytes 0.7 thou/uL (0.11-0.59); #Neutrophils 13.5 thou/uL (1.40-6.50); %Basophils 0.1 % (0.0-1.0); %Eosinophils 0.2 % (0.0-10.0); %Lymphocytes 6.7 % (21.0-51.0); %Monocytes 4.8 % (0.0-10.0); %Neutrophils 88.2 % (42.0-75.0); Mean Corpuscular HGB CONC 32.8 g/dL (32.0-36.0); Mean Corpuscular Hemoglobin 30.6 pg (27.0-31.0); Mean Corpuscular Volume 93.3 fl (78.0-98.0); Mean Platelet Volume 10.6 fL (7.4-10.4); Platelet Count 183 10x3/uL (130-400); RBC Distribution Width 12.7 % (11.5-14.5); Red Blood Cell (RBC) Count 4.25 mill/uL (4.70-6.10); White Blood Cell (WBC) Count 15.3 10x3/uL (4.8-10.8)
[2023-01-08 08:54] LABS: Anion Gap 14 mmol/L (10-20); BUN (Urea Nitrogen) 38 mg/dL (8.4-25.7); Calc. Creatinine Clearance 62 mL/min (70-130); Calcium 8.9 mg/dL (7.8-10.44); Carbon Dioxide 23 mmol/L (23-31); Chloride 109 mmol/L (98-107); Estimated GFR 74; Glucose 208 mg/dL (83-110); Potassium 3.3 mmol/L (3.5-5.1); Sodium 143 mmol/L (136-145)
[2023-01-08] MEDS: Cefepime 2 GM in Sodium Chloride 0.9% 100 ML IVPB SCH (10:52)
[2023-01-08] MEDS ORDERED: Piperacillin/Tazobactam 3.375 GM in Sodium Chloride 0.9% 100 ML IVPB SCH ×2 (14:30→14:45)
[2023-01-08] MEDS: Sodium Chloride 0.9% 1,000 ML IV SCH (15:17)
[2023-01-08] MEDS: Mirtazapine 15 MG TAB PO SCH (20:35)
[2023-01-08] MEDS: Donepezil HCl 10 MG TAB PO SCH (20:36)
[2023-01-08] MEDS: Metoprolol Tartrate 100 MG TAB PO SCH (20:36)
[2023-01-08] MEDS: Atorvastatin Calcium 40 MG TAB PO SCH (20:36)
[2023-01-08] MEDS: Finasteride 5 MG TAB PO SCH (20:37)
[2023-01-08] MEDS: Piperacillin/Tazobactam 3.375 GM in Sodium Chloride 0.9% 100 ML IVPB SCH (22:53)
[2023-01-09 04:55] LABS: #Lymphocytes 1.3 thou/uL (1.20-3.40); #Monocytes 0.8 thou/uL (0.11-0.59); #Neutrophils 10.2 thou/uL (1.40-6.50); %Eosinophils 0.1 % (0.0-10.0); %Lymphocytes 10.3 % (21.0-51.0); %Monocytes 6.7 % (0.0-10.0); %Neutrophils 82.9 % (42.0-75.0); Hemoglobin 13.1 g/dL (14.0-18.0); Mean Corpuscular HGB CONC 33.8 g/dL (32.0-36.0); Mean Corpuscular Hemoglobin 31.4 pg (27.0-31.0); Mean Corpuscular Volume 92.8 fl (78.0-98.0); Mean Platelet Volume 10.7 fL (7.4-10.4); Platelet Count 197 10x3/uL (130-400); RBC Distribution Width 12.7 % (11.5-14.5); Red Blood Cell (RBC) Count 4.17 mill/uL (4.70-6.10); White Blood Cell (WBC) Count 12.4 10x3/uL (4.8-10.8)
[2023-01-09 05:20] LABS: Anion Gap 13 mmol/L (10-20); BUN (Urea Nitrogen) 34 mg/dL (8.4-25.7); Calc. Creatinine Clearance 70 mL/min (70-130); Calcium 8.6 mg/dL (7.8-10.44); Carbon Dioxide 24 mmol/L (23-31); Chloride 109 mmol/L (98-107); Estimated GFR 84; Glucose 150 mg/dL (83-110); Potassium 3.1 mmol/L (3.5-5.1); Sodium 143 mmol/L (136-145)
[2023-01-09] MEDS: Piperacillin/Tazobactam 3.375 GM in Sodium Chloride 0.9% 100 ML IVPB SCH ×2 (06:47→14:36)
[2023-01-09] MEDS ORDERED: Potassium Chloride 20 MEQ TAB PO SCH (10:00)
[2023-01-09] MEDS: Lisinopril 20 MG TAB PO SCH (10:20)
[2023-01-09] MEDS: Isosorbide Mononitrate 20 MG TAB PO SCH (10:20)
[2023-01-09] MEDS: Apixaban 5 MG TAB PO SCH ×2 (10:20→22:06)
[2023-01-09] MEDS: Carbidopa/Levodopa 25-100 mg Tablet PO SCH ×3 (10:21→22:05)
[2023-01-09] MEDS: Amlodipine 5 MG TAB PO SCH (10:21)
[2023-01-09] MEDS: Famotidine 20 MG TAB PO SCH ×2 (10:21→22:06)
[2023-01-09] MEDS: Metoprolol Tartrate 100 MG TAB PO SCH ×2 (10:22→22:06)
[2023-01-09] MEDS: Dexamethasone 4 MG TAB PO SCH (10:34)
[2023-01-09] MEDS: metFORMIN 500 MG TAB PO SCH ×2 (10:34→17:37)
[2023-01-09] MEDS: Sodium Chloride 0.9% 1,000 ML IV SCH (14:44)
[2023-01-09] MEDS: Sulfameth/Trimethoprim DS 800-160mg TAB PO SCH (22:04)
[2023-01-09] MEDS: Atorvastatin Calcium 40 MG TAB PO SCH (22:05)
[2023-01-09] MEDS: Donepezil HCl 10 MG TAB PO SCH (22:05)
[2023-01-09] MEDS: Mirtazapine 15 MG TAB PO SCH (22:05)
[2023-01-09] MEDS: HumaLOG 300 UNITS/3 ML VIAL SC PRN (22:06)
[2023-01-09] MEDS: Finasteride 5 MG TAB PO SCH (22:07)
[2023-01-10 05:02] LABS: Anion Gap 13 mmol/L (10-20); BUN (Urea Nitrogen) 31 mg/dL (8.4-25.7); Calc. Creatinine Clearance 72 mL/min (70-130); Calcium 8.1 mg/dL (7.8-10.44); Carbon Dioxide 21 mmol/L (23-31); Chloride 114 mmol/L (98-107); Estimated GFR 85; Glucose 201 mg/dL (83-110); Potassium 3.5 mmol/L (3.5-5.1); Sodium 144 mmol/L (136-145)
[2023-01-10 05:14] LABS: Band 11 % (5-11); Hemoglobin 12.1 g/dL (14.0-18.0); Hypochromia SLIGHT = 6-15 cells (100X) (0-5/hpf); Lymphocytes 8 % (21-51); MDiff Complete? YES; Mean Corpuscular HGB CONC 35.3 g/dL (32.0-36.0); Mean Corpuscular Hemoglobin 32.6 pg (27.0-31.0); Mean Corpuscular Volume 92.3 fl (78.0-98.0); Mean Platelet Volume 10.6 fL (7.4-10.4); Monocytes 7 % (0-10); Neutrophil 74 % (42-75); Platelet Count 180 10x3/uL (130-400); Platelet Morphology Comment Appears Adequate; RBC Distribution Width 12.7 % (11.5-14.5); Red Blood Cell (RBC) Count 3.73 mill/uL (4.70-6.10); White Blood Cell (WBC) Count 13.5 10x3/uL (4.8-10.8)
[2023-01-10] MEDS: HumaLOG 300 UNITS/3 ML VIAL SC PRN (06:37)
[2023-01-10] MEDS: Sodium Chloride 0.9% 1,000 ML IV SCH (06:41)
[2023-01-10] MEDS ORDERED: Potassium Chloride 10 MEQ TAB PO SCH (08:45)
[2023-01-10] MEDS: Metoprolol Tartrate 100 MG TAB PO SCH ×2 (10:31→22:08)
[2023-01-10] MEDS: Carbidopa/Levodopa 25-100 mg Tablet PO SCH ×3 (10:31→22:07)
[2023-01-10] MEDS: Apixaban 5 MG TAB PO SCH (10:32)
[2023-01-10] MEDS: Amlodipine 5 MG TAB PO SCH (10:32)
[2023-01-10] MEDS: Lisinopril 20 MG TAB PO SCH (10:32)
[2023-01-10] MEDS: Famotidine 20 MG TAB PO SCH ×2 (10:33→22:08)
[2023-01-10] MEDS: Isosorbide Mononitrate 20 MG TAB PO SCH (10:33)
[2023-01-10] MEDS: Sulfameth/Trimethoprim DS 800-160mg TAB PO SCH ×2 (10:46→22:08)
[2023-01-10] MEDS: metFORMIN 500 MG TAB PO SCH ×2 (10:49→16:45)
[2023-01-10] MEDS ORDERED: Ibuprofen 100 MG/5 ML UDCUP PO PRN (11:02)
[2023-01-10] MEDS: Potassium Chloride 10 MEQ TAB PO SCH (16:46)
[2023-01-10] MEDS: Donepezil HCl 10 MG TAB PO SCH (22:07)
[2023-01-10] MEDS: Mirtazapine 15 MG TAB PO SCH (22:08)
[2023-01-10] MEDS: Finasteride 5 MG TAB PO SCH (22:08)
[2023-01-11] MEDS: metFORMIN 500 MG TAB PO SCH ×2 (10:52→19:01)
[2023-01-11] MEDS: Amlodipine 5 MG TAB PO SCH (10:53)
[2023-01-11] MEDS: Potassium Chloride 10 MEQ TAB PO SCH (10:53)
[2023-01-11] MEDS: Famotidine 20 MG TAB PO SCH ×2 (10:54→21:55)
[2023-01-11] MEDS: Carbidopa/Levodopa 25-100 mg Tablet PO SCH ×3 (10:54→21:54)
[2023-01-11] MEDS: Isosorbide Mononitrate 20 MG TAB PO SCH (10:54)
[2023-01-11] MEDS: Lisinopril 20 MG TAB PO SCH (10:55)
[2023-01-11] MEDS: Metoprolol Tartrate 100 MG TAB PO SCH ×2 (10:55→22:17)
[2023-01-11] MEDS: Sulfameth/Trimethoprim DS 800-160mg TAB PO SCH ×2 (10:56→22:18)
[2023-01-11] MEDS: Donepezil HCl 10 MG TAB PO SCH (21:54)
[2023-01-11] MEDS: Finasteride 5 MG TAB PO SCH (21:55)
[2023-01-11] MEDS: Mirtazapine 15 MG TAB PO SCH (22:17)
[2023-01-11] MEDS ORDERED: Scopolamine 1.5 mg/72 hour Patch TD SCH (23:00)
[2023-01-11] MEDS: Acetaminophen 500 MG TAB PO PRN (23:29)
[2023-01-12] MEDS ORDERED: Morphine 2 MG/ML VIAL SLOW IVP PRN (04:06)
[2023-01-12] MEDS ORDERED: Lorazepam 1 MG TAB PO PRN (04:06)
[2023-01-12] MEDS ORDERED: Haloperidol Lactate 5 MG/ML VIAL IM SCH (04:15)
[2023-01-12] MEDS: Metoprolol Tartrate 100 MG TAB PO SCH (05:47)
[2023-01-12] MEDS: Lorazepam 2 MG/ML VIAL SLOW IVP PRN ×2 (06:21→09:59)
[2023-01-12] MEDS: Carbidopa/Levodopa 25-100 mg Tablet PO SCH (08:18)
[2023-01-12] MEDS: Famotidine 20 MG TAB PO SCH (08:18)
[2023-01-12] MEDS: metFORMIN 500 MG TAB PO SCH (08:18)
[2023-01-12] MEDS: Amlodipine 5 MG TAB PO SCH (08:18)
[2023-01-12] MEDS: Lisinopril 20 MG TAB PO SCH (08:19)
[2023-01-12] MEDS: Isosorbide Mononitrate 20 MG TAB PO SCH (08:19)
[2023-01-12] MEDS: Sulfameth/Trimethoprim DS 800-160mg TAB PO SCH (08:20)
[2023-01-12 09:09] VITALS: BP 99/63; TEMP 98.4
== END 2023-01-12 11:51 | disposition hospice, inpatient (51) | DRG 871 ==
LOC: ERS 10:02 → ERHOLD 12:50 → 2NO 17:15 → T4-B 01-10 13:25
PROVIDERS: ADMIT Emergency Medicine; ATTEND Internal Medicine
PROC: 3E03329 Introduction of Other Anti-infective into Peripheral Vein, Percutaneous Approach (ICD-10-PCS; principal; 2023-01-06)
PROC: 3E0333Z Introduction of Anti-inflammatory into Peripheral Vein, Percutaneous Approach (ICD-10-PCS; 2023-01-06)
PROC: 8E0ZXY6 Isolation (ICD-10-PCS; 2023-01-06)
DX: A41.89 Other specified sepsis (principal); I21.A1 Myocardial infarction type 2; J12.82 Pneumonia due to coronavirus disease 2019; U07.1 COVID-19; I48.20 Chronic atrial fibrillation, unspecified; I50.22 Chronic systolic (congestive) heart failure; N30.00 Acute cystitis without hematuria; I47.1 Supraventricular tachycardia; F02.818 Dementia in other diseases classified elsewhere, unspecified severity, with other behavioral disturbance; Z51.5 Encounter for palliative care; Z66 Do not resuscitate; R65.20 Severe sepsis without septic shock; G30.9 Alzheimer's disease, unspecified; G20 Parkinson's disease; E78.5 Hyperlipidemia, unspecified; I44.7 Left bundle-branch block, unspecified; I11.0 Hypertensive heart disease with heart failure; E11.9 Type 2 diabetes mellitus without complications; I25.10 Atherosclerotic heart disease of native coronary artery without angina pectoris; Z95.1 Presence of aortocoronary bypass graft; Z79.01 Long term (current) use of anticoagulants; Z79.899 Other long term (current) drug therapy; Z79.84 Long term (current) use of oral hypoglycemic drugs; Z86.73 Personal history of transient ischemic attack (TIA), and cerebral infarction without residual deficits; Z90.49 Acquired absence of other specified parts of digestive tract; Z83.3 Family history of diabetes mellitus; Z82.49 Family history of ischemic heart disease and other diseases of the circulatory system; E03.8 Other specified hypothyroidism; I34.0 Nonrheumatic mitral (valve) insufficiency
CPT/HCPCS: 36415; 36416; 71045; 80048; 80053; 81003; 81015; 82550; 82553; 83605; 83690; 83735; 83880; 84439; 84443; 84481; 84484; 85025; 85610; 85730; 87040; 87077; 87081; 87086; 87186; 93005; 93306; 94760; 96365; 96367; 96372; 96375; 97139; J0692; J1630; J1650; J1815; J2060; J2272; J2543; J3370; J3475; J3490; J7050; J8540